=== PATIENT | female | born 1950 | race Caucasian/White ===

== ENCOUNTER → 2025-01-28 09:06 | Outpatient (REF) | payer SELFPAY | LOC: HWRAD 09:06 | PROVIDERS: ATTENDING PHYSICIAN Internal Medicine Geriatric Medicine | DX: I10 Essential (primary) hypertension (principal); E78.2 Mixed hyperlipidemia; E03.9 Hypothyroidism, unspecified; E55.9 Vitamin D deficiency, unspecified; E74.39 Other disorders of intestinal carbohydrate absorption; M85.852 Other specified disorders of bone density and structure, left thigh; K21.9 Gastro-esophageal reflux disease without esophagitis; R74.01 Elevation of levels of liver transaminase levels; Z13.31 Encounter for screening for depression; L24.0 Irritant contact dermatitis due to detergents | CPT/HCPCS: 75571 ==

== ENCOUNTER → 2025-07-12 08:53 | Outpatient (REF) | payer OTHER, SELFPAY | LOC: RAD 08:53 | PROVIDERS: ATTENDING PHYSICIAN Internal Medicine Geriatric Medicine | DX: I10 Essential (primary) hypertension (principal); E78.2 Mixed hyperlipidemia; E03.9 Hypothyroidism, unspecified; E55.9 Vitamin D deficiency, unspecified; E74.39 Other disorders of intestinal carbohydrate absorption; M85.852 Other specified disorders of bone density and structure, left thigh; K21.9 Gastro-esophageal reflux disease without esophagitis; R74.01 Elevation of levels of liver transaminase levels; Z13.31 Encounter for screening for depression; R91.1 Solitary pulmonary nodule | CPT/HCPCS: 71260; Q9967 ==